=== PATIENT | female | born 1955 | race Caucasian/White ===

== ENCOUNTER 2020-10-01 00:28 | Outpatient (CLI) | payer MEDICARE, OTHER | END 2020-10-01 23:59 | disposition critical access hospital (66) | LOC: EMS 00:28 | DX: R07.89 Other chest pain (principal); R11.0 Nausea; R61 Generalized hyperhidrosis | CPT/HCPCS: A0425; A0427 ==

== ENCOUNTER 2020-10-01 00:58 | Emergency (ER) | payer MEDICARE, OTHER ==
--- NOTE | 2020-10-01 01:15 | ED Physician Documentation ---
PD HPI ABD PAIN - Stated complaint Stated Complaint: LEFT SIDE CP - History obtained from History obtained from: Patient, EMS - History of Present Illness Timing - onset: How many hours ago (4), Today Timing - duration: Hours (4) Timing - details: Abrupt onset, Still present, Constant Quality: Sharp, Pain Location: Epigastric, LUQ Radiation: Chest (just below left breast) Improved by: Laying still Worsened by: No: Moving, Breathing, Palpation Associated symptoms: No: Fever, Nausea, Vomiting, Near syncope / syncope Similar symptoms before: No diagnosis (has had similar pains about once a year or so but only lasting minutes or hour or so, but has had it occur every couple of weeks the past 2 months. This is longer episode.) Recently seen: Not recently seen Review of Systems Constitutional: denies: Fever, Chills Nose: denies: Rhinorrhea / runny nose, Congestion Throat: denies: Sore throat Respiratory: denies: Cough GI: reports: Abdominal Pain (left upper abd to left breast area.). denies: Nausea, Vomiting PD PAST MEDICAL HISTORY - Past Medical History Cardiovascular: None Respiratory: None Neuro: None Endocrine/Autoimmune: None GI: None - Present Medications Home Medications: Ambulatory Orders Medication Instructions Recorded Confirmed Albuterol Sulfate [Proair Hfa 2 puffs IH Q6HR PRN 10/01/20 10/01/20 Inhaler] Atenolol [Tenormin] 50 mg PO DAILY 10/01/20 10/01/20 Calcium Carbonate [Tums (Calcium 1,000 mg PO DAILY 10/01/20 10/01/20 Carbonate 500mg)] Famotidine [Pepcid] 20 mg PO DAILY #30 tablet 10/01/20 Lidocaine Viscous 2% [Xylocaine 5 ml PO Q4H PRN #100 ml 10/01/20 Viscous 2%] Losartan [Cozaar] 50 mg PO DAILY 10/01/20 10/01/20 hydroCHLOROthiazide [Hydrodiuril] 25 mg PO DAILY 10/01/20 10/01/20 - Allergies Allergies/Adverse Reactions: Allergies Allergy/AdvReac Type Severity Reaction Status Date / Time lisinopril Allergy Respiratory Verified 10/01/20 01:23 nifedipine Allergy Unknown Verified 10/01/20 01:23 dust Allergy Respiratory Uncoded 10/01/20 01:24 PD ED PE NORMAL - Vitals Vital signs reviewed: Yes - General General: Alert and oriented X 3, No acute distress, Well developed/nourished - HEENT HEENT: Pharynx benign - Neck Neck: Supple, no meningeal sign, No adenopathy - Cardiac Cardiac: RRR, No murmur - Respiratory Respiratory: Clear bilaterally - Abdomen Abdomen: Normal bowel sounds, Soft, Non distended, Other (some tender without gaurding epigastric area. ) - Derm Derm: Normal color, Warm and dry Results - Vitals Vitals: Vital Signs - 24 hr 10/01/20 10/01/20 10/01/20 01:00 01:05 01:44 Temperature 36.3 C L Heart Rate 84 80 Respiratory 21 19 Rate Blood Pressure 143/68 H 159/76 H Blood Pressure 156/79 H [Left] Blood Pressure 143/68 H [Right] O2 Saturation 100 99 10/01/20 10/01/20 10/01/20 02:35 03:00 03:30 Temperature 36.6 C Heart Rate 79 78 73 Respiratory 16 16 14 Rate Blood Pressure 148/79 H 148/79 H 148/79 H Blood Pressure [Left] Blood Pressure [Right] O2 Saturation 97 99 97 Oxygen O2 Source Room air - EKG (time done) 01:05 Rhythm: NSR [place]: Normal Intervals: Normal NC, Wide QRS (incomplete RBBB. ) QRS: Normal Ischemia: Normal ST segments. No: ST elevation c/w ischemia, ST depression - Labs Labs: Laboratory Tests 10/01/20 10/01/20 10/01/20 01:30 01:30 01:30 WBC 9.4 RBC 4.57 Hgb 14.2 Hct 40.9 MCV 89.5 MCH 31.1 H MCHC 34.7 RDW 12.3 Plt Count 188 MPV 10.1 Neut # (Auto) 8.2 H Lymph # (Auto) 0.8 L [place] # (Auto) 0.3 Eos # (Auto) 0.0 Baso # (Auto) 0.0 Absolute Nucleated RBC 0.00 Nucleated RBC % 0.0 Sodium 131 L Potassium 3.4 L Chloride 90 L Carbon Dioxide 30 Anion Gap 11.0 BUN 12 Creatinine 0.6 Estimated GFR (MDRD) 100 Glucose 143 H Calcium 9.1 Total Bilirubin 1.0 AST 24 ALT 29 Alkaline Phosphatase 37 L Troponin I High Sens 3.2 Total Protein 7.3 Albumin 4.1 Globulin 3.2 Albumin/Globulin Ratio 1.3 Lipase 25 Urine Color Urine Clarity Urine pH Ur Specific [place] Urine Protein Urine Glucose (UA) Urine Ketones Urine Occult Blood Urine Nitrite Urine Bilirubin Urine Urobilinogen Ur Leukocyte Esterase Ur Microscopic Review Urine Culture Comments 10/01/20 02:52 WBC RBC Hgb Hct MCV MCH MCHC RDW Plt Count MPV Neut # (Auto) Lymph # (Auto) [place] # (Auto) Eos # (Auto) Baso # (Auto) Absolute Nucleated RBC Nucleated RBC % Sodium Potassium Chloride Carbon Dioxide Anion Gap BUN Creatinine Estimated GFR (MDRD) Glucose Calcium Total Bilirubin AST ALT Alkaline Phosphatase Troponin I High Sens Total Protein Albumin Globulin Albumin/Globulin Ratio Lipase Urine Color YELLOW Urine Clarity CLEAR Urine pH 7.5 Ur Specific [place] 1.010 Urine Protein NEGATIVE Urine Glucose (UA) NEGATIVE Urine Ketones TRACE Urine Occult Blood NEGATIVE Urine Nitrite NEGATIVE Urine Bilirubin NEGATIVE Urine Urobilinogen 0.2 (NORMAL) Ur Leukocyte Esterase NEGATIVE Ur Microscopic Review NOT INDICATED Urine Culture Comments NOT INDICATED - Rads (name of study) abd/pelvic CT Radiology: Prelim report reviewed (incidental 4 mm nodule lower left lung, follow up CT suggested. No other acute process. ), See rad report PD MEDICAL DECISION MAKING - ED course Complexity details: re-evaluated patient (improved symptoms with GI cocktail. ), considered differential, d/w patient Departure - Departure Disposition: 01 Home, Self Care Clinical Impression: Left-sided chest pain Reflux esophagitis Qualifiers: Esophagitis bleeding: without hemorrhage Qualified Code(s): K21.00 - Gastro- esophageal reflux disease with esophagitis, without bleeding Condition: Stable Record reviewed to determine appropriate education?: Yes Instructions: ED Chest Pain Atypical Unkn Cause Follow-Up: Zina Oliver MD [Primary Care Provider] - Prescriptions: Famotidine [Pepcid] 20 mg PO DAILY #30 tablet Lidocaine Viscous 2% [Xylocaine Viscous 2%] 5 ml PO Q4H PRN #100 ml PRN Reason: Pain Comments: Your EKG and troponin are normal here so fairly definitive not be having a heart attack. No signs of acute gallbladder or pancreas problems. Your blood tests are normal. Your CT scan did not show any acute process to account for the pain. Incident till finding of a 4 mm nodule in the left lower lung with a suggestion for follow-up CT scanning. Discussed this with your primary care and common would be to repeat imaging in several months or so to ensure no interval change. This would not really be the cause of pain at this time. Comment was made of some possible small stones in the gallbladder but again no signs of acute gallbladder inflammation or swelling. I believe your pain episodes are most likely caused by reflux with esophageal irritation or spasm. As such I would suggest using an acid reducing medicine such as famotidine daily for the next month or 2 and see if you have no further episodes. With an episode, you can try antacids such as Maalox or Mylanta or Gaviscon or such and could combine it with some lidocaine and see if it helps. Follow-up with your primary care. Discharge Date/Time: 10/01/20 03:35
[2020-10-01] MEDS ORDERED: KETOROLAC 15 MG/ML VIAL IVP STA (01:16)
[2020-10-01] MEDS ORDERED: MAG HYDROX/AL HYDROX/SIMETH 30 ML UDC PO STA (01:16)
[2020-10-01] MEDS ORDERED: LIDOCAINE VISCOUS 2% 15 ML UDC MM STA (01:16)
[2020-10-01 01:39] LABS: BASOPHILS % (AUTO) 0.3 %; EOSINOPHILS % (AUTO) 0.1 %; HCT - HEMATOCRIT 40.9 % (37.0-47.0); HGB - HEMOGLOBIN 14.2 g/dL (12.0-16.0); LYMPHOCYTES # (AUTO) 0.8 10^3/uL (1.5-3.5); LYMPHOCYTES % (AUTO) 8.5 %; MEAN CORPUSCULAR HEMOGLOBIN 31.1 pg (27.0-31.0); MEAN CORPUSCULAR HGB CONC 34.7 g/dL (32.0-36.0); MEAN CORPUSCULAR VOLUME 89.5 fL (81.0-99.0); MEAN PLATELET VOLUME 10.1 fL (7.9-10.8); MONOCYTES # (AUTO) 0.3 10^3/uL (0.0-1.0); MONOCYTES % (AUTO) 2.8 %; NEUTROPHILS # (AUTO) 8.2 10^3/uL (1.5-6.6); NEUTROPHILS % (AUTO) 87.7 %; PLT - PLATELET COUNT 188 10^3/uL (130-450); RED BLOOD COUNT 4.57 10^6/uL (4.20-5.40); RED CELL DISTRIBUTION WIDTH 12.3 % (12.0-15.0); WHITE BLOOD COUNT 9.4 x10^3/uL (4.8-10.8)
[2020-10-01] MEDS ORDERED: IOPAMIDOL-300 100 ML VIAL ONE (01:43)
[2020-10-01 01:50] LABS: ALBUMIN 4.1 g/dL (3.2-5.5); ALBUMIN/GLOBULIN RATIO 1.3 (1.0-2.2); CALCIUM 9.1 mg/dL (8.5-10.3); CREATININE 0.6 mg/dL (0.4-1.0); POTASSIUM 3.4 mmol/L (3.5-5.0); TOTAL PROTEIN 7.3 g/dL (6.7-8.2)
[2020-10-01] MEDS ORDERED: IOPAMIDOL-300 100 ML VIAL IVP ONE (02:29)
[2020-10-01 02:37] VITALS: BP 148/79
[2020-10-01 03:03] LABS: BILIRUBIN,URINE NEGATIVE (NEGATIVE); GLUCOSE, URINE (UA) NEGATIVE (NEGATIVE); KETONES,URINE (UA) TRACE mg/dL (NEGATIVE); LEUKOCYTE ESTERASE, URINE NEGATIVE (NEGATIVE); NITRITE,URINE NEGATIVE (NEGATIVE); OCCULT BLOOD,URINE NEGATIVE (NEGATIVE); PH,URINE 7.5 PH (5.0-7.5); PROTEIN,URINE NEGATIVE (NEGATIVE); UROBILINOGEN,URINE 0.2 (NORMAL) E.U./dL (NORMAL)
[2020-10-01 03:05] LABS: CLARITY,URINE CLEAR (CLEAR)
--- NOTE | 2020-10-01 09:16 | CT Report ---
PROCEDURE: Abdomen/Pelvis W INDICATIONS: LLQ Abdominal pain, diverticulitis suspected CONTRAST: IV CONTRAST: Isovue 300 ml: 100 PO CONTRAST: *NO PO CONTRAST TECHNIQUE: After the administration of IV contrast, 5 mm thick sections acquired from the diaphragms to the symp hysis. 5 mm thick coronal and sagittal reformats were acquired. For radiation dose reduction, the f ollowing was used: automated exposure control, adjustment of mA and/or kV according to patient size. COMPARISON: None. FINDINGS: Image quality: Excellent. ABDOMEN: Lung bases: 5 mm nodule in the subpleural left lateral lower lobe. 4 mm nodule in the subpleural post erior lateral left midlung. Heart size is normal. Solid organs: Mild liver enlargement and mild to moderate diffuse hypodensity throughout the parench yma. The gallbladder contains several punctate stones which appear to be layering dependently. 1.1 cm hypodense nodule in the medial left adrenal gland limb. 1.5 cm nodule arising from the body of the r ight adrenal gland. The spleen, pancreas, and kidneys are normal. Peritoneum and bowel: There is mild circumferential and uniform wall thickening of the stomach with t race surrounding fat stranding and hyperemia. No extraluminal gas. Bowel loops demonstrate normal wal l thickness and caliber. No free fluid or air. The appendix was not seen. Nodes and vessels: No retroperitoneal or mesenteric adenopathy by size criteria. Aorta and inferior vena cava are normal in size. Miscellaneous: No ventral hernias. PELVIS: Genitourinary: Bladder wall thickness is normal. The uterus is absent. No suspicious adnexal masses . Miscellaneous: No inguinal hernias or adenopathy. Bones: No suspicious bony lesions. Severe left and mild right degenerative changes in the hip joint s. Several spurs throughout the spine. No vertebral body compression fractures. IMPRESSION: 1. Findings raising the possibility of mild gastritis. 2. Nonobstructing cholelithiasis. 3. Mild hepatomegaly and hepatic steatosis. 4. Bilateral adrenal nodules. Please consider adrenal protocol CT or MRI for further workup. 5. 4 and 5 mm left lower lobe subpleural nodules. Consider routine chest CT. 6. Findings discussed with Dr. Chand in the emergency room at 9:12 AM Reviewed by: Dee Dee Powell MD on 10/01/2020 9:14 AM PDT Approved by: Dee Dee Powell MD on 10/01/2020 9:14 AM PDT Station ID: [id number]
== END 2020-10-01 03:35 | disposition home or self-care (01) ==
LOC: EDBD → EDUNIT# → ED 00:58
DX: K21.00 Gastro-esophageal reflux disease with esophagitis, without bleeding (principal)
CPT/HCPCS: 36415; 74177; 80053; 81003; 83690; 84484; 85025; 93005; 96374; 99284; A9270; Q9967; 81001; 87086

== ENCOUNTER 2023-06-11 11:27 | Outpatient (CLI) | payer MEDICARE, OTHER ==
--- NOTE | 2023-06-11 16:59 | XRAY Report ---
PROCEDURE: Chest 2V INDICATIONS: ACUTE COUGH TECHNIQUE: 2 views of the chest were acquired. COMPARISON: None. FINDINGS: Surgical changes and devices: Cholecystectomy clips. Lungs and pleura: No pleural effusions or pneumothorax. Lungs are clear. Mediastinum: Mediastinal contours appear normal. Heart size is normal. Bones and chest wall: No suspicious bony lesions. Overlying soft tissues appear unremarkable. IMPRESSION: No acute cardiopulmonary process. Reviewed by: Su Munguia MD on 06/11/2023 4:58 PM PDT Approved by: Su Munguia MD on 06/11/2023 4:58 PM PDT Station ID: [id number]
== END 2023-06-11 11:28 | disposition home or self-care (01) ==
LOC: DI 11:27
PROVIDERS: ATTEND Registered Nurse
DX: R05.1 Acute cough (principal)